=== PATIENT | female | born 1960 | race Caucasian/White ===

== ENCOUNTER → 2018-01-18 11:45 | Outpatient (CLI) | payer OTHER, SELFPAY ==
[2018-01-21 12:30] LABS: QuantiFERON TB NEGATIVE (Negative)
== END ==
DX: Z11.1 Encounter for screening for respiratory tuberculosis (principal)
CPT/HCPCS: 36415; 86480

== ENCOUNTER → 2018-05-03 12:50 | Outpatient (CLI) | payer OTHER, SELFPAY | DX: M81.0 Age-related osteoporosis without current pathological fracture (principal); Z78.0 Asymptomatic menopausal state; Z90.722 Acquired absence of ovaries, bilateral | CPT/HCPCS: 77080 ==

== ENCOUNTER → 2020-03-05 13:52 | Outpatient (CLI) | payer OTHER, SELFPAY ==
[2020-03-05 14:21] LABS: Add Manual Diff / Slide Review NO; Basophils Absolute Auto 0 /uL (0-100); Basophils Percent Auto 0.6 % (0-2); Eosinophils Absolute Auto 100 /uL (0-450); Eosinophils Percent Auto 1.6 % (2-4); Hematocrit 36.4 % (36-46); Hemoglobin 12.3 g/dL (12.0-16.0); Lymphocytes Absolute Auto 1400 /uL (1100-4500); Mean Corpuscular HGB Conc 33.7 % (30-36); Mean Corpuscular Hemoglobin 30.5 PG (26-34); Mean Corpuscular Volume 90.6 fL (80-100); Monocytes Absolute Auto 400 /uL (0-900); Monocytes Percent Auto 8.3 % (3-14); Neutrophils Absolute Auto 3000 /uL (1500-7000); Neutrophils Percent Auto 61.5 % (50-75); Platelet Count 167 X10^3/uL (150-400); Red Blood Cell Count 4.01 X10^6/uL (4.0-5.2); Red Cell Distribution Width 13.5 % (11.6-14.8); White Blood Cell Count 4.9 X10^3/uL (4.5-11.0)
[2020-03-05 14:39] LABS: Alanine Aminotransferase 32 IU/L (<35); Albumin 4.3 g/dL (3.5-5.0); Albumin Globulin Ratio 1.5 (1.0-2.8); Alkaline Phosphatase 72 U/L (38-126); Aspartate Aminotransferase 39 IU/L (14-36); Bilirubin Total 0.4 mg/dL (0.2-1.3); Blood Urea Nitrogen 20 mg/dL (7-17); Calcium 9.6 mg/dL (8.4-10.2); Carbon Dioxide 31 mmol/L (22-32); Chloride 104 mmol/L (98-107); Estimated Glomerular Filt Rate > 60.0 mL/min (>60); Globulin 2.9 g/dL (1.7-4.1); Glucose 96 mg/dL (70-100); HEMOLYSIS < 15 (0-50); Potassium 4.3 mmol/L (3.4-5.1); Sodium 139 mmol/L (137-145); Total Protein 7.2 g/dL (6.3-8.2)
== END ==
PROVIDERS: PCP Registered Nurse Diabetes Educator; Referring Provider Internal Medicine; Visit Provider Internal Medicine
DX: C50.919 Malignant neoplasm of unspecified site of unspecified female breast (principal)
CPT/HCPCS: 36415; 80053; 85025

== ENCOUNTER → 2020-05-28 12:38 | Outpatient (CLI) | payer OTHER, SELFPAY | PROVIDERS: PCP Registered Nurse Diabetes Educator; Referring Provider Internal Medicine; Visit Provider Internal Medicine | DX: M81.0 Age-related osteoporosis without current pathological fracture (principal); Z78.0 Asymptomatic menopausal state; C50.919 Malignant neoplasm of unspecified site of unspecified female breast; Z90.722 Acquired absence of ovaries, bilateral | CPT/HCPCS: 77080 ==

== ENCOUNTER → 2020-06-11 10:55 | Outpatient (CLI) | payer OTHER, SELFPAY ==
[2020-06-11 11:28] LABS: COVID19 -Nasal RAPID Negative (Negative)
== END ==
PROVIDERS: PCP Registered Nurse Diabetes Educator; Visit Provider Specialist
DX: Z01.812 Encounter for preprocedural laboratory examination (principal); Z20.822 Contact with and (suspected) exposure to COVID-19
CPT/HCPCS: 87635; C9803

== ENCOUNTER → 2020-06-13 09:45 | Outpatient (CLI) | payer OTHER, SELFPAY ==
[2020-06-13 11:34] LABS: COVID19 -Nasal RAPID Negative (Negative)
== END ==
PROVIDERS: PCP Registered Nurse Diabetes Educator; Visit Provider Specialist
DX: Z20.822 Contact with and (suspected) exposure to COVID-19 (principal)
CPT/HCPCS: 87635; C9803

== ENCOUNTER 2020-06-14 09:48 | Day surgery (SDC) | payer OTHER, SELFPAY ==
[2020-06-14] VITALS (7 sets, daily range): BP systolic 90–109; BP diastolic 57–66; PULSE 72–85; RESP 10–16; TEMP 36.2–37.2; O2SAT 97–100; BMI 20.7
--- NOTE | 2020-06-14 | PATH_ITS ---
[facility] Accession Number: [id number] . 01 Material submitted: . colon - ASCENDING COLON POLYP . 01 Clinical history: . SDC . 02 Diagnosis: Ascending Colon, Polyp: Tubular adenoma. MRV 06/18/2020 1039 Local . 02 Electronically signed: . Noe Esparza MD, PhD, Pathologist NPI- [id number] . 01 Gross description: . The specimen is received in formalin, labeled ascending colon polyp and consists of two hatch fragments of soft tissue, measuring 0.7 x 0.5 x 0.2 cm in aggregate. The specimen is entirely submitted in cassette A1. ([id number]) /[facility] 06/15/2020 1717 Local . 02 Pathologist provided ICD-10: D12.2 . 02 CPT . 227936 Performed at: 01 [facility] [address] [id number] MD Shen García MD Phone: [phone] Performed at: 02 [facility] [address] [place], [place] [id number] MD Ginny Iqbal MD Phone: [phone]
[2020-06-14] MEDS: LACTATED RINGERS 1,000 ML 150 ML IV (10:39)
--- NOTE | 2020-06-14 11:18 | PM.HP.1 ---
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 Last exam was 10 years ago. Patient History Medical History Breast cancer Breast cancer metastasized to axillary lymph node Breast cancer metastasized to axillary lymph node History of basal cell carcinoma (BCC) Osteoporosis Shifting sleep-work schedule Sleep difficulties Surgical History History of bilateral salpingo-oophorectomy (BSO) History of tonsillectomy History of total mastectomy Status post appendectomy Family & Social History Social History: household members family Tobacco & Substance use: Smoking Status Never smoker alcohol intake current alcohol intake frequency a few times a week Substance Use Type does not use Meds Home Medications and Allergies Home Medications Medication Instructions Recorded Confirmed Type Flaxseed Oil (#FLAXSEED OIL) 1,000 mg PO Q DAY #0 08/12/12 06/14/20 History VITAMIN D (Vitamin D3) 1,000 unit PO QDAY #0 08/12/12 06/14/20 History calcium carb-ergocalciferol (vit 1 tab PO DAILY 11/10/19 06/14/20 History D2) 600 mg calcium-200 unit tablet melatonin 3 mg capsule 3 mg PO BEDTIME PRN 11/10/19 06/14/20 History multivitamin with minerals 1 tab PO DAILY 12/21/19 06/14/20 History [Hair,Skin and Nails] estradiol See Rx Instructions .ROUTE 03/05/20 06/14/20 Rx .COMPLEX #1 each lorazepam 0.5 mg tablet See Rx Instructions .ROUTE 03/05/20 06/14/20 Rx .COMPLEX #30 tablet Allergies Allergy/AdvReac Type Severity Reaction Status Date / Time morphine [MORPHINE] Allergy Mild ITCHING Verified 06/14/20 10:24 oxycodone [OXYCODONE] Allergy Mild ITCHING Verified 06/14/20 10:24 Review of Systems Review of Systems ROS: Yes All systems reviewed with the patient and are negative except as otherwise documented Exam Vital Signs (past 8 hours): - 06/14/20 10:31 Temperature 97.3 F L Pulse Rate 78 Respiratory Rate 16 Blood Pressure 101/63 Pulse Oximetry 99 Oxygen Delivery Method Room Air Narrative Exam Narrative: Pleasant cooperative patient no apparent distress. Lungs are clear to auscultation. No rales or rhonchi. Heart regular rate and rhythm no murmur gallop. Abdomen is soft nontender without mass. No obvious hernias. Patient is alert and oriented x3. Assessment & Plan Assessment & Plan narrative: The patient for a screening colonoscopy. I have discussed the procedure with them. Risks of bleeding, perforation which would necessitate major operation, failure to find remove all lesions, the potential tattoo were all discussed. All questions were answered. They wished to proceed.
--- NOTE | 2020-06-14 11:20 | PM.PREOP ---
Pre-operative Note COVID-19 COVID-19 status: Negative Result date/Date tested (Pos, Neg/Pending): 06/13/20 Interval Note History & Physical reviewed/Exam performed by Physician: Yes Changes to H&P: No ASA Class (for procedural sedation): I
[2020-06-14] MEDS: ONDANSETRON 4 MG/2 ML INJ IV (11:25)
[2020-06-14] MEDS: ATROPINE 1 MG/10 ML SYRINGE 0.4 MG IV (11:55)
--- NOTE | 2020-06-14 12:08 | P.OP.ENDO_ITS ---
Operative Date/Time/Diagnoses Date of procedure: 06/14/20 Time of procedure: 12:08 Pre-op diagnosis: Screening examination. Last exam 10 years ago. Post-op diagnosis: same (One tiny polyp removed in the ascending colon. Could not see the cecum well.) Procedure & Clinicians Study performed: Attempted colonoscopy. Able to cannulate To the ascending colon. Cold biopsy. Same procedure as scheduled: Yes Indications: Screening exam Surgeon: Wang Cerna Procedure Notes SCOAP/Timeout: Performed Procedure in detail: Patient was placed in left lateral decubitus position underwent IV sedation directed by the surgeon consisting of fentanyl and Versed. Because the patient's reaction to fentanyl with severe nausea we limited the amount of the drug we used. Digital exam was unremarkable. Scope was inserted and advanced through the rectum into the sigmoid and descending colon. Early on we had trouble with advancing due to elongation and the scope flipping. We applied pressure, inserted a stiffener, repositioned the patient all of which was done in sequence ending combination and ultimately reach the ascending colon. At that point we simply ran out of scope. I could not advance any further. No matter what manipulations I did I could not get the scope to go all the way into the cecum. We did not visualize beyond the ileocecal valve. The cecum was not well seen. After numerous attempts to get there including backing the scope out and reinserting it I finally abandoned the procedure. There was a small polyp in the ascending colon which I biopsied and removed. No other lesions were seen on egress through the colon. The patient was not noted to have diverticulosis. She did have what appeared to be an elongated and unusually pliable colon. The scope was retroflexed in the rectum. The appea flower was normal. The scope was removed and the patient tolerated the procedure well. The prep was adequate though there was a great deal of liquid within the colon. Scope withdrawal time: Just over 6 minutes. Sedation minutes: 36 Findings: polyp (One tiny polyp in the ascending colon) and other findings (Could not visualize the cecum adequately.) Specimen(s): other (Polyp) Complications: none Impression: Incomplete exam. Consider barium enema to see the cecum or attempt to repeat colonoscopy within the next 3 years. Given the patient's reactions to narcotics consider colonoscopy under propofol sedation. Post-procedure Plan for aftercare: Will call patient and discuss future evaluation. Follow up: as needed Disposition: PACU
[2020-06-14] MEDS: MIDAZOLAM 5 MG/5 ML VIAL IV (12:11)
[2020-06-14] MEDS: fentaNYL 250 MCG/5 ML INJ IV (12:12)
== END 2020-06-14 13:37 | disposition home or self-care (01) ==
PROVIDERS: PCP Registered Nurse Diabetes Educator; Referring Provider Specialist; Visit Provider Specialist
PROC: 0DJD8ZZ Inspection of Lower Intestinal Tract, Via Natural or Artificial Opening Endoscopic (ICD-10-PCS; CPT 45378; principal; 2020-06-14 10:45)
DX: Z12.11 Encounter for screening for malignant neoplasm of colon (principal); D12.2 Benign neoplasm of ascending colon; Z53.09 Procedure and treatment not carried out because of other contraindication
CPT/HCPCS: 45380; 45378; 99152; 99153; J0461; J2250; J2405; J3010

== ENCOUNTER → 2022-02-21 13:54 | Outpatient (CLI) | payer OTHER, SELFPAY ==
--- NOTE | 2022-02-21 13:56 | DI.RAD.S_ITS ---
PROCEDURE: XR CHEST 2V INDICATIONS: chronic cough TECHNIQUE: 2 views of the chest were acquired. COMPARISON: None. FINDINGS: Lungs and pleura: Lungs are clear. No pleural effusions or pneumothorax. Mediastinum: Mediastinal contours are normal. Heart size is normal. Bones and chest wall: No suspicious bony abnormalities. Soft tissues appear unremarkable. IMPRESSION: No acute cardiopulmonary process demonstrated radiographically. Dictated by: Joel oRsado M.D. on 02/21/2022 at 14:59 Approved by: Joel Rosado M.D. on 02/21/2022 at 15:06
== END ==
PROVIDERS: PCP Registered Nurse Diabetes Educator; Referring Provider Registered Nurse Diabetes Educator; Visit Provider Registered Nurse Diabetes Educator
DX: R05.3 Chronic cough (principal); R06.00 Dyspnea, unspecified
CPT/HCPCS: 71046

== ENCOUNTER → 2022-06-16 10:30 | Outpatient (CLI) | payer OTHER, SELFPAY ==
[2022-06-16 14:31] LABS: COVID19 -Nasal RAPID Negative (Negative)
== END ==
PROVIDERS: PCP Registered Nurse Diabetes Educator; Visit Provider Surgery
DX: Z20.822 Contact with and (suspected) exposure to COVID-19 (principal); Z01.812 Encounter for preprocedural laboratory examination
CPT/HCPCS: 87635

== ENCOUNTER → 2022-06-16 10:52 | Outpatient (CLI) | payer OTHER, SELFPAY ==
[2022-06-16 12:18] LABS: Add Manual Diff / Slide Review NO; Basophils Absolute Auto 0 /uL (0-100); Basophils Percent Auto 0.9 % (0-2); Eosinophils Absolute Auto 100 /uL (0-450); Eosinophils Percent Auto 2.2 % (2-4); Hematocrit 38.1 % (36-46); Hemoglobin 13.1 g/dL (12.0-16.0); Lymphocytes Absolute Auto 1300 /uL (1100-4500); Lymphocytes Percent Auto 31.5 % (25-40); Mean Corpuscular HGB Conc 34.3 % (30-36); Mean Corpuscular Hemoglobin 30.1 PG (26-34); Mean Corpuscular Volume 87.8 fL (80-100); Monocytes Absolute Auto 400 /uL (0-900); Monocytes Percent Auto 10.1 % (3-14); Neutrophils Absolute Auto 2400 /uL (1500-7000); Neutrophils Percent Auto 55.3 % (50-75); Platelet Count 177 X10^3/uL (150-400); Red Blood Cell Count 4.34 X10^6/uL (4.0-5.2); Red Cell Distribution Width 13.7 % (11.6-14.8); White Blood Cell Count 4.3 X10^3/uL (4.5-11.0)
[2022-06-16 12:31] LABS: Alanine Aminotransferase 18 IU/L (<35); Albumin 4.1 g/dL (3.5-5.0); Albumin Globulin Ratio 1.3 (1.0-2.8); Alkaline Phosphatase 72 U/L (38-126); Aspartate Aminotransferase 28 IU/L (14-36); BUN Creatinine Ratio 17.3 (6-22); Bilirubin Total 0.5 mg/dL (0.2-1.3); Blood Urea Nitrogen 13 mg/dL (7-17); Calcium 9.2 mg/dL (8.4-10.2); Carbon Dioxide 29 mmol/L (22-32); Chloride 103 mmol/L (98-107); Estimated Glomerular Filt Rate > 60 mL/min (>60); Globulin 3.1 g/dL (1.7-4.1); Glucose 97 mg/dL (80-110); HEMOLYSIS < 15 (0-50); Sodium 138 mmol/L (137-145); Total Protein 7.2 g/dL (6.3-8.2)
== END ==
PROVIDERS: PCP Registered Nurse Diabetes Educator; Referring Provider Internal Medicine Hematology & Oncology; Visit Provider Internal Medicine Hematology & Oncology
DX: C50.919 Malignant neoplasm of unspecified site of unspecified female breast (principal); M81.0 Age-related osteoporosis without current pathological fracture; Z20.822 Contact with and (suspected) exposure to COVID-19; Z78.0 Asymptomatic menopausal state; Z79.52 Long term (current) use of systemic steroids; Z79.83 Long term (current) use of bisphosphonates
CPT/HCPCS: 36415; 77080; 80053; 85025; 87635; C9803

== ENCOUNTER 2022-06-17 12:12 | Day surgery (SDC) | payer OTHER, SELFPAY ==
[2022-06-17] MEDS: FLEETS ENEMA 1 EACH PR (12:41)
[2022-06-17 12:57] VITALS: BMI 21.6
[2022-06-17 13:02] VITALS: BP 105/67; PULSE 80; RESP 12; TEMP 36.4; O2SAT 100
[2022-06-17] MEDS: LACTATED RINGERS 1,000 ML 42 ML IV (13:09)
--- NOTE | 2022-06-17 13:53 | PM.HP.1 ---
History of Present Illness History of Present Illness Date Patient Seen: 06/17/22 Time Patient Seen: 13:53 Chief complaint: SDC Narrative: The patient presents for colorectal screening. She has a personal history of colonic polyps. Please refer to the H& P April 2022 for further detail. No interval changes in health. Patient History Medical History (Updated 04/25/22 @ 12:18 by Malcolm Herr MD) Breast cancer Breast cancer metastasized to axillary lymph node Breast cancer metastasized to axillary lymph node History of basal cell carcinoma (BCC) Osteoporosis Shifting sleep-work schedule Sleep difficulties Surgical History History of bilateral salpingo-oophorectomy (BSO) History of tonsillectomy History of total mastectomy Status post appendectomy Family & Social History Social History: household members family,none lives independently Yes Tobacco & Substance use: Smoking Status Never smoker alcohol intake current alcohol intake frequency a few times a week Substance Use Type does not use Meds Home Medications and Allergies Home Medications Medication Instructions Recorded Confirmed Type Flaxseed Oil (#FLAXSEED OIL) 1,000 mg PO Q DAY ##0 08/12/12 04/25/22 History VITAMIN D (Vitamin D3) 1,000 unit PO QDAY ##0 08/12/12 04/25/22 History calcium carb-ergocalciferol (vit 1 tab PO DAILY 11/10/19 04/25/22 History D2) 600 mg calcium-200 unit tablet melatonin 3 mg capsule 3 mg PO BEDTIME PRN Insomnia 11/10/19 04/25/22 History multivitamin with minerals 1 tab PO DAILY 12/21/19 04/25/22 History (Hair,Skin and Nails tablet) estradiol 0.01% (0.1 mg/gram) 1 g vaginal 2XW #42.5 grams 09/09/21 06/17/22 Rx vaginal cream magnesium gluconate 27 mg 27 mg PO BEDTIME 09/09/21 04/25/22 History magnesium (500 mg) tablet (Mag-G) multivit,Ca,iron,msn-AL-awodjfi-rudcglt-nadm-WPGP 1 cap PO DAILY 09/09/21 04/25/22 History 3 mg-133 mcg capsule (Body, Hair, Skin and Nails) probiotic gummy 1 tab PO DAILY 09/09/21 04/25/22 History psyllium husk 0.52 gram capsule 0.52 g PO DAILY 09/09/21 04/25/22 History (Metamucil) vinegar gummy 1 tab PO DAILY 09/09/21 04/25/22 History estradiol 2 mg (7.5 mcg/24 hour) 1 vag ring vaginal Q 3 MONTHS 03/27/22 06/17/22 Rx vaginal ring (Estring) vaginal atrophy #1 ea lorazepam 0.5 mg tablet See Rx Instructions .Route 03/29/22 06/17/22 Rx .COMPLEX PRN sleep #45 tabs Allergies Allergy/AdvReac Type Severity Reaction Status Date / Time morphine [MORPHINE] Allergy Mild ITCHING Verified 06/17/22 12:55 oxycodone [OXYCODONE] Allergy Mild ITCHING Verified 06/17/22 12:55 Exam Vital Signs (past 8 hours): - 06/17/22 13:02 Temperature 97.5 F L Pulse Rate 80 Respiratory Rate 12 Blood Pressure 105/67 Pulse Oximetry 100 Oxygen Delivery Method Room Air Oxygen Delivery Method Room Air Narrative Exam Narrative: General adult woman alert oriented no acute distress Assessment & Plan Assessment and plan (1) Personal history of colonic polyps: Status: Acute Assessment & Plan narrative: The patient requires colorectal screening and colonoscopy is recommended. Technical details were discussed. Risks, benefits, alternatives explained. Risks including but not limited to myocardial infarction, aspiration, bleeding, pain, missed lesion, incomplete examination, need for further radiographic studies, colonic perforation, and need for major abdominal surgery were discussed. All questions were answered to their satisfaction, and they are in agreement with this plan. Time Spent With Patient Critical Care time: I spent a total of [] minutes of critical care time on this patient's care today; this time is exclusive of procedural time.
--- NOTE | 2022-06-17 15:00 | PM.OP.COLON ---
Operative Date/Time/Diagnoses Date of procedure: 06/17/22 Time of procedure: 15:00 Pre-op diagnosis: Personal history of colonic polyps Post-op diagnosis: same Procedure & Clinicians Study performed: Colonoscopy Same procedure as scheduled: Yes Indications: Personal history of colonic polyps Surgeon: Malcolm Herr Procedure Notes Procedure in detail: The history and physical was performed/updated and the patient is ASA class is 2. The procedure was discussed in detail with the patient. Potential risks complications including infection, bleeding, missed diagnosis, perforation, need for surgery, and were explained. Their questions were answered and informed consent was obtained. Patient was brought to the procedure room and placed standard monitoring equipment. The patient's vital signs were monitored continuously throughout the entire procedure. Prior to starting time-out was performed. The patient was placed in the left lateral recumbent position. Procedural sedation was administered by anesthesia. Examination began with a thorough inspection of the perianal area there was no evidence of fissures, fistulae, external hemorrhoids or cutaneous malignancy. The colonoscopy scope was then placed into the anal canal and was advanced forward. The cecum could not be intubated despite multiple attempts. Interventions including stiffener and manual external pressure were not adequate to visualize the cecum. The scope was then slowly withdrawn examining colon thoroughly in all directions, irrigating it of any residual stool. FINDINGS 1. Tortuous colon 2. No masses or polyps The patient tolerated the procedure well. They will be discharged once criteria are met. The prep was of good/excellent quality. The withdrawl time was 6 minutes. Specimen(s): none sent Complications: none Impression: Normal colonoscopy Post-procedure Recommendations: Colonoscopy in 5 years and Colonoscopy in 10 years Plan for aftercare: Consider barium enema for evaluation of the cecum Disposition: same day surgery
[2022-06-17 15:03] VITALS: BP 86/62; PULSE 78; RESP 17; TEMP 36.2; O2SAT 99
[2022-06-17 15:09] VITALS: BP 95/58; PULSE 77; RESP 16; TEMP 36.2; O2SAT 98
[2022-06-17] MEDS: ONDANSETRON 4 MG/2 ML INJ IV (15:18)
[2022-06-17 15:19] VITALS: BP 96/63; PULSE 68; RESP 11; TEMP 36.1; O2SAT 98
[2022-06-17 15:24] VITALS: BP 97/57; PULSE 67; RESP 14; O2SAT 99
--- NOTE | 2022-06-17 15:47 | SUR.PHASEII ---
1544: Pt A&Ox4, denies any distress and ready to discharge home. Discharge instructions reviewed with patient and time allowed for questions. IV DC'd intact. Pt left unit with all personal belongings and written instructions via w/c to ER entrance where spouse will meet and transport home.
== END 2022-06-17 15:45 | disposition home or self-care (01) ==
PROVIDERS: PCP Registered Nurse Diabetes Educator; Referring Provider Surgery; Visit Provider Surgery
PROC: 0DJD8ZZ Inspection of Lower Intestinal Tract, Via Natural or Artificial Opening Endoscopic (ICD-10-PCS; CPT 45378; principal; 2022-06-17 13:15)
DX: Z12.11 Encounter for screening for malignant neoplasm of colon (principal); Z86.010 Personal history of colon polyps
CPT/HCPCS: 45378; J2405; J2704

== ENCOUNTER → 2023-02-17 12:38 | Outpatient (CLI) | payer OTHER, SELFPAY ==
[2023-02-19 14:08] LABS: QuantiFERON Mitogen Value >10.00 IU/mL (.); QuantiFERON Nil Value 0.19 IU/mL (.); QuantiFERON TB Gold Plus Negative (Negative); QuantiFERON TB1 Ag Value 0.46 IU/mL (.); QuantiFERON TB2 Ag Value 0.31 IU/mL (.)
== END ==
PROVIDERS: PCP Registered Nurse Diabetes Educator; Referring Provider Registered Nurse Diabetes Educator; Visit Provider Registered Nurse Diabetes Educator
DX: Z11.1 Encounter for screening for respiratory tuberculosis (principal)
CPT/HCPCS: 36415; 86480

== ENCOUNTER → 2023-05-12 15:31 | Outpatient (CLI) | payer OTHER, SELFPAY ==
--- NOTE | 2023-05-12 15:32 | DI.RAD.S_ITS ---
PROCEDURE: XR FINGER RT MIN 2V INDICATIONS: eval R ring finger PIP joint swelling pain TECHNIQUE: AP hand, 2 views of the 4th finger(s) acquired. COMPARISON: None. FINDINGS: Bones: No fractures or dislocations. No suspicious bony lesions. Mild 4th PIP joint space narrowing and marginal osteophyte Soft tissues: No suspicious soft tissue calcifications. Periarticular 4th PIP soft tissue swelling IMPRESSION: Mild 4th PIP arthritic changes and moderate periarticular soft tissue swelling without fracture or foreign body Approved by: Magan Zimmerman M.D. on 05/12/2023 at 16:30
== END ==
PROVIDERS: PCP Registered Nurse Diabetes Educator; Referring Provider Registered Nurse Diabetes Educator; Visit Provider Registered Nurse Diabetes Educator
DX: S63.618A Unspecified sprain of other finger, initial encounter (principal); M79.89 Other specified soft tissue disorders; X58.XXXA Exposure to other specified factors, initial encounter
CPT/HCPCS: 73140

== ENCOUNTER → 2024-03-15 13:35 | Outpatient (CLI) | payer BC, SELFPAY ==
[2024-03-17 12:23] LABS: QuantiFERON Mitogen Value >10.00 IU/mL (.); QuantiFERON TB Gold Plus Negative (Negative); QuantiFERON TB1 Ag Value 0.29 IU/mL (.); QuantiFERON TB2 Ag Value 0.09 IU/mL (.)
== END ==
PROVIDERS: PCP Registered Nurse Diabetes Educator; Referring Provider Family Medicine; Visit Provider Family Medicine
DX: Z11.7 Encounter for testing for latent tuberculosis infection (principal)
CPT/HCPCS: 36415; 86480

== ENCOUNTER → 2024-07-20 14:18 | Outpatient (CLI) | payer BC, SELFPAY ==
[2024-07-20 14:49] LABS: Appearance Urine UA SL CLOUDY; Bilirubin Urine UA NEGATIVE (NEGATIVE); Color Urine UA YELLOW; Glucose Urine UA NEGATIVE (Negative); Ketones Urine UA NEGATIVE (NEGATIVE); Leukocyte Esterase Urine UA NEGATIVE (NEGATIVE); Nitrite Urine UA NEGATIVE (Negative); Occult Blood Urine UA NEGATIVE (Negative); Protein Urine UA NEGATIVE (Negative); Urobilinogen Urine UA 0.2 E.U./dL (0.2)
[2024-07-20 15:03] LABS: Add Manual Diff / Slide Review NO; Basophils Absolute Auto 0 /uL (0-100); Basophils Percent Auto 0.7 % (0-2); Eosinophils Absolute Auto 100 /uL (0-450); Eosinophils Percent Auto 1.1 % (2-4); Hematocrit 38.2 % (36-46); Hemoglobin 12.9 g/dL (12.0-16.0); Lymphocytes Absolute Auto 1300 /uL (1100-4500); Lymphocytes Percent Auto 24.7 % (25-40); Mean Corpuscular HGB Conc 33.8 % (30-36); Mean Corpuscular Hemoglobin 30.4 PG (26-34); Mean Corpuscular Volume 90.1 fL (80-100); Monocytes Absolute Auto 400 /uL (0-900); Monocytes Percent Auto 7.4 % (3-14); Neutrophils Absolute Auto 3400 /uL (1500-7000); Neutrophils Percent Auto 66.1 % (50-75); Platelet Count 183 X10^3/uL (150-400); Red Blood Cell Count 4.24 X10^6/uL (4.0-5.2); Red Cell Distribution Width 13.2 % (11.6-14.8); White Blood Cell Count 5.2 X10^3/uL (4.5-11.0)
[2024-07-20 15:13] LABS: Bacteria Urine Many (>30); Culture Indicated Urine Cult Not Indicated; RBC Urine None Seen (0-5/HPF); Squamous Epithelial Cell Urine 1-5 /HPF (0-5/HPF); Urine Volume 10mL (spun); WBC Urine 1-5/HPF (0-5/HPF)
[2024-07-20 15:20] LABS: Alanine Aminotransferase 28 IU/L (<35); Albumin 4.1 g/dL (3.5-5.0); Albumin Globulin Ratio 1.6 (1.0-2.8); Alkaline Phosphatase 76 U/L (38-126); Aspartate Aminotransferase 35 IU/L (14-36); Bilirubin Total 0.5 mg/dL (0.2-1.3); Blood Urea Nitrogen 15 mg/dL (7-17); Calcium 9.5 mg/dL (8.4-10.2); Carbon Dioxide 24 mmol/L (22-32); Chloride 104 mmol/L (98-107); Estimated Glomerular Filt Rate > 60 mL/min (>60); Globulin 2.5 g/dL (1.7-4.1); Glucose 119 mg/dL (80-110); HEMOLYSIS < 15 (0-50); Potassium 4.1 mmol/L (3.4-5.1); Sodium 137 mmol/L (137-145); Total Protein 6.6 g/dL (6.3-8.2)
[2024-07-20 15:51] LABS: TSH w/ Reflex to FT4 0.04 uIU/mL (0.47-4.68)
[2024-07-20 17:14] LABS: Free T4, Direct Thyroxine 0.97 ng/dL (0.78-2.19)
== END ==
LOC: LAB 14:19
PROVIDERS: PCP Registered Nurse Diabetes Educator; Referring Provider Registered Nurse Diabetes Educator; Visit Provider Registered Nurse Diabetes Educator
DX: M81.0 Age-related osteoporosis without current pathological fracture (principal); Z85.828 Personal history of other malignant neoplasm of skin; Z13.9 Encounter for screening, unspecified; E78.5 Hyperlipidemia, unspecified; R82.90 Unspecified abnormal findings in urine
CPT/HCPCS: 80053; 81001; 84439; 84443; 85025